=== PATIENT | female | born 1945 | race Caucasian/White ===

== ENCOUNTER → 2017-03-27 | Outpatient (CLI) | payer OTHER | LOC: FIMAGING 11:53 | PROVIDERS: ATTEND Family Medicine | DX: Z12.31 Encounter for screening mammogram for malignant neoplasm of breast (principal) | CPT/HCPCS: G0202 ==

== ENCOUNTER 2018-03-29 23:59 | Observation (INO) | payer OTHER ==
--- NOTE | 2018-03-30 00:10 | EDPHY ---
H & P Stated Complaint: Weakness Time Seen by Provider: 03/30/18 00:10 HPI/ROS: HPI CHIEF COMPLAINT: Generalized weakness, chest pressure, nausea HISTORY OF PRESENT ILLNESS: 72-year-old female, otherwise healthy denies any significant medical history does not take any daily medications presents emergency room stating that she woke up from sleep approximately an hour ago feeling that her heart was racing, some chest pressure, nausea, and global weakness. No headache, no focal weakness. No numbness or tingling. She felt her heart racing, chest pressure and this is what prompted her to come to the emergency room. Past Medical History: Denies significant medical history Past Surgical History: Orthopedic surgeries in the past. Social History: Occasional alcohol use. Denies illicit drugs or tobacco. Family History: Noncontributory ROS REVIEW OF SYSTEMS: 10 Systems were reviewed and negative with the exception of the elements mentioned in the history of present illness. Exam Constitutional nontoxic appearing no acute distress, triage nursing summary reviewed, vital signs reviewed, awake/alert. Eyes normal conjunctivae and sclera, EOMI, PERRLA. HENT normal inspection, atraumatic, moist mucus membranes, no epistax is, neck supple/ no meningismus, no raccoon eyes. Respiratory clear to auscultation bilaterally, normal breath sounds, no respiratory distress, no wheezing. Cardiovascular rate normal, regular rhythm, no murmur, no edema, distal pulses normal. Gastrointestinal soft, non-tender, no rebound, no guarding, normal bowel sounds, no distension, no pulsatile mass. Genitourinary no CVA tenderness. Musculoskeletal no midline vertebral tenderness, full range of motion, no calf swelling, no tenderness of extremities, no meningismus, good pulses, neurovascularly intact. Skin pink, warm, & dry, no rash, skin atraumatic. Neurologic awake, alert and oriented x 3, AAOx3, moves all 4 extremities equally, motor intact, sensory intact, CN II-XII intact, normal cerebellar, normal vision, normal speech. Psychiatric normal mood/affect. Heme/Lymph/Immune no lymphadenopathy. Differential diagnosis includes but is not limited to: ACS, atypical chest pain , pneumothorax, pneumonia, pulmonary embolism, aortic dissection, congestive heart failure, tumor, musculoskeletal pain, esophageal pain, GERD, peptic ulcer disease, pancreatitis Medical Decision Making: Plan for this patient IV establishment blood draw, EKG , troponin, chest x-ray rule out acute coronary syndrome, electrolytes, urine, D -dimer Re-evaluation: EKG interpretation by me on record in [facility] system. Impression time of EKG 0016, sinus rhythm 87, without any signs of acute ischemia. No ST elevation no ST depression no T-wave abnormalities. ED x-ray chest one view negative for acute cardiopulmonary disease. 0151AM: At this time patient is chest pain-free. I have asked the hospalist service Dr. Powell to admit overnight. 0156: Patient updated. Patient is chest pain free. EKG non ischemic. Negative trop. UA reviewed. Will treat. Source: Patient - Personal History Current Tetanus/Diphtheria Vaccine: Yes Current Tetanus Diphtheria and Acellular Pertussis (TDAP): Yes - Medical/Surgical History Hx Asthma: No Hx Chronic Respiratory Disease: No Hx Diabetes: No Hx Cardiac Disease: No Hx Renal Disease: No Hx Cirrhosis: No Hx Alcoholism: No Hx HIV/AIDS: No Hx Splenectomy or Spleen Trauma: No Other PMH: PMH: NOne. PSH:tonsilectomy, left elbow - Social History Smoking Status: Never smoked Constitutional: Initial Vital Signs Heart Rate 104 H 03/30/18 00:04 Respiratory Rate 18 03/30/18 00:04 Blood Pressure 157/90 H 03/30/18 00:04 O2 Sat (%) 99 03/30/18 00:04 O2 Delivery Mode Room Air Allergies/Adverse Reactions: Penicillins Allergy (Verified 03/30/18 00:04) Home Medications: Medication Instructions Recorded NK [No Known Home Meds] 04/26/15 Medical Decision Making - Data Points Laboratory Results: Laboratory Results 03/30/18 00:16 03/30/18 00:16 03/30/18 03/30/18 03/30/18 00:30 00:21 00:16 WBC RBC Hgb Hct MCV MCH MCHC RDW Plt Count MPV Neut % (Auto) Lymph % (Auto) [place] % (Auto) Eos % (Auto) Baso % (Auto) Nucleat RBC Rel Count Absolute Neuts (auto) Absolute Lymphs (auto) Absolute Monos (auto) Absolute Eos (auto) Absolute Basos (auto) Absolute Nucleated RBC Immature Gran % Immature Gran # PT INR APTT D-Dimer Sodium 142 mEq/L mEq/L (135-145) Potassium 3.7 mEq/L mEq/L (3.3-5.0) Chloride 106 mEq/L mEq/L (97-110) Carbon Dioxide 24 mEq/l mEq/l (22-31) Anion Gap 12 mEq/L mEq/L (6-14) BUN 14 mg/dL mg/dL (7-23) Creatinine 0.8 mg/dL mg/dL (0.6-1.0) Estimated GFR > 60 Glucose 150 mg/dL H mg/dL (70-100) Calcium 10.2 mg/dL mg/dL (8.5-10.4) Magnesium 2.1 mg/dL mg/dL (1.6-2.3) Total Bilirubin 1.0 mg/dL mg/dL (0.1-1.4) Conjugated Bilirubin 0.2 mg/dL mg/dL (0.0-0.5) Unconjugated Bilirubin 0.8 mg/dL mg/dL (0.0-1.1) AST 26 IU/L IU/L (14-46) ALT 25 IU/L IU/L (9-52) Alkaline Phosphatase 71 IU/L IU/L (38-126) POC Troponin I 0.01 ng/mL ng/mL (0.00-0.08) NT-Pro-B Natriuret Pep 320 pg/mL H pg/mL (0-125) Total Protein 7.4 g/dL g/dL (6.3-8.2) Albumin 4.5 g/dL g/dL (3.5-5.0) Lipase 139 IU/L IU/L (23-300) Urine Color YELLOW Urine Appearance HAZY Urine pH 5.0 (5.0-7.5) Ur Specific [place] 1.014 (1.002-1.030) Urine Protein NEGATIVE (NEGATIVE) Urine Ketones NEGATIVE (NEGATIVE) Urine Blood 2+ H (NEGATIVE) Urine Nitrate NEGATIVE (NEGATIVE) Urine Bilirubin NEGATIVE (NEGATIVE) Urine Urobilinogen NEGATIVE EU EU (0.2-1.0) Ur Leukocyte Esterase 2+ H (NEGATIVE) Urine RBC 1-3 /hpf /hpf (0-3) Urine WBC 5-10 /hpf H /hpf (0-3) Ur Epithelial Cells TRACE /lpf /lpf (NONE-1+) Urine Bacteria TRACE /hpf H /hpf (NONE SEEN) Urine Mucus TRACE /lpf /lpf (NONE-1+) Urine Glucose NEGATIVE (NEGATIVE) 03/30/18 03/30/18 00:16 00:16 WBC 6.91 10^3/uL 10^3/uL (3.80-9.50) RBC 4.77 10^6/uL 10^6/uL (4.18-5.33) Hgb 14.5 g/dL g/dL (12.6-16.3) Hct 42.6 % % (38.0-47.0) MCV 89.3 fL fL (81.5-99.8) MCH 30.4 pg pg (27.9-34.1) MCHC 34.0 g/dL g/dL (32.4-36.7) RDW 12.7 % % (11.5-15.2) Plt Count 242 10^3/uL 10^3/uL (150-400) MPV 10.9 fL fL (8.7-11.7) Neut % (Auto) 37.0 % L % (39.3-74.2) Lymph % (Auto) 52.2 % H % (15.0-45.0) [place] % (Auto) 6.4 % % (4.5-13.0) Eos % (Auto) 3.0 % % (0.6-7.6) Baso % (Auto) 1.3 % % (0.3-1.7) Nucleat RBC Rel Count 0.0 % % (0.0-0.2) Absolute Neuts (auto) 2.55 10^3/uL 10^3/uL (1.70-6.50) Absolute Lymphs (auto) 3.61 10^3/uL H 10^3/uL (1.00-3.00) Absolute Monos (auto) 0.44 10^3/uL 10^3/uL (0.30-0.80) Absolute Eos (auto) 0.21 10^3/uL 10^3/uL (0.03-0.40) Absolute Basos (auto) 0.09 10^3/uL 10^3/uL (0.02-0.10) Absolute Nucleated RBC 0.00 10^3/uL 10^3/uL (0-0.01) Immature Gran % 0.1 % % (0.0-1.1) Immature Gran # 0.01 10^3/uL 10^3/uL (0.00-0.10) PT 13.0 SEC SEC (12.0-15.0) INR 0.96 (0.83-1.16) APTT 24.7 SEC SEC (23.0-38.0) D-Dimer 0.40 ug/mLFEU ug/mLFEU (0.00-0.50) Sodium Potassium Chloride Carbon Dioxide Anion Gap BUN Creatinine Estimated GFR Glucose Calcium Magnesium Total Bilirubin Conjugated Bilirubin Unconjugated Bilirubin AST ALT Alkaline Phosphatase POC Troponin I NT-Pro-B Natriuret Pep Total Protein Albumin Lipase Urine Color Urine Appearance Urine pH Ur Specific [place] Urine Protein Urine Ketones Urine Blood Urine Nitrate Urine Bilirubin Urine Urobilinogen Ur Leukocyte Esterase Urine RBC Urine WBC Ur Epithelial Cells Urine Bacteria Urine Mucus Urine Glucose Medications Given: Discontinued Medications Sodium Chloride (Ns) 1,000 mls @ 0 mls/hr IV EDNOW ONE; Wide Open PRN Reason: Protocol Stop: 03/30/18 00:16 Last Admin: 03/30/18 00:28 Dose: 1,000 mls Ceftriaxone Sodium/Dextrose (Rocephin 1 Gm (Premix)) 50 mls @ 100 mls/hr IV EDNOW ONE PRN Reason: Protocol Stop: 03/30/18 01:25 Last Admin: 03/30/18 01:08 Dose: 50 mls Point of Care Test Results: Chemistry 03/30/18 00:21 POC Troponin I 0.01 ng/mL ng/mL (0.00-0.08) Departure - Departure Disposition: [facility] Inpatient Acute Clinical Impression: Chest pain Qualifiers: Chest pain type: unspecified Qualified Code(s): R07.9 - Chest pain, unspecified UTI (urinary tract infection) Qualifiers: Urinary tract infection type: acute cystitis Hematuria presence: with hematuria Qualified Code(s): N30.01 - Acute cystitis with hematuria Condition: Fair Referrals: Eusebia Gerardo MD [Primary Care Provider] - As per Instructions
[2018-03-30] MEDS ORDERED: NS 1,000 ML IV ONE (00:15)
[2018-03-30 00:33] LABS: INR 0.96 (0.83-1.16)
[2018-03-30 01:00] LABS: PLATELET COUNT 242 10^3/uL (150-400)
[2018-03-30] MEDS ORDERED: ONDANSETRON 4 MG/2 ML VIAL IVP PRN (02:15)
[2018-03-30] MEDS ORDERED: ACETAMINOPHEN 325 MG TAB PO PRN (02:15)
[2018-03-30] MEDS ORDERED: ONDANSETRON DISINTEGRATING 4 MG TAB PO PRN (02:15)
--- NOTE | 2018-03-30 02:37 | PDGENHP ---
History and Physical - Chief Complaint Chest pain - History of Present Illness 72 yo F w/ no PMHx presents with chest pain. The patient woke up around 11:30 PM with palpitations, chest discomfort, and diaphoresis. She decided to come to the ED immediately. The sensation resolved over the course of the next hour. In the ED her work-up has been reassuring including ECG and troponin. She has no past cardiac history but her dad had CAD and her mom AF. At the time of my evaluation she is chest pain free. She walks 10,000 steps daily and goes on a hike every Thursday. Case discussed with ED physician Dr. Ospina; records reviewed and summarized above. History Information - Allergies/Home Medication List Allergies/Adverse Reactions: Penicillins Allergy (Verified 03/30/18 00:04) Home Medications: NK [No Known Home Meds] 04/26/15 [Last Taken Unknown] I have personally reviewed and updated: family history, medical history - Past Medical History no pertinent PMH - Surgical History Additional surgical history: Tonsillectomy. L elbow screws - Family History Positive for: CAD Additional family history: Afib - Social History Smoking Status: Never smoked Review of Systems Review of Systems: ROS: 10pt was reviewed & negative except for what was stated in HPI & below Physical Exam Physical Exam: Temp Pulse Resp BP Pulse Ox 73 18 155/91 H 95 03/30/18 01:55 03/30/18 01:55 03/30/18 01:55 03/30/18 01:55 Constitutional: no apparent distress, not in pain Eyes: PERRL, EOMI Ears, Nose, Mouth, Throat: moist mucous membranes, no oral mucosal ulcers Cardiovascular: regular rate and rhythym, no murmur, rub, or gallop Respiratory: no respiratory distress, clear to auscultation Gastrointestinal: normoactive bowel sounds, soft, non-tender abdomen Skin: warm, normal color Musculoskeletal: full muscle strength, no muscle tenderness Neurologic: AAOx3, CN II-XII Intact Psychiatric: interacting appropriately, not anxious Lab Data & Imaging Review 03/30/18 00:16 03/30/18 00:16 WBC 6.91 10^3/uL (3.80-9.50) 03/30/18 00:16 RBC 4.77 10^6/uL (4.18-5.33) 03/30/18 00:16 Hgb 14.5 g/dL (12.6-16.3) 03/30/18 00:16 Hct 42.6 % (38.0-47.0) 03/30/18 00:16 MCV 89.3 fL (81.5-99.8) 03/30/18 00:16 MCH 30.4 pg (27.9-34.1) 03/30/18 00:16 MCHC 34.0 g/dL (32.4-36.7) 03/30/18 00:16 RDW 12.7 % (11.5-15.2) 03/30/18 00:16 Plt Count 242 10^3/uL (150-400) 03/30/18 00:16 MPV 10.9 fL (8.7-11.7) 03/30/18 00:16 Neut % (Auto) 37.0 % (39.3-74.2) L 03/30/18 00:16 Lymph % (Auto) 52.2 % (15.0-45.0) H 03/30/18 00:16 [place] % (Auto) 6.4 % (4.5-13.0) 03/30/18 00:16 Eos % (Auto) 3.0 % (0.6-7.6) 03/30/18 00:16 Baso % (Auto) 1.3 % (0.3-1.7) 03/30/18 00:16 Nucleat RBC Rel Count 0.0 % (0.0-0.2) 03/30/18 00:16 Absolute Neuts (auto) 2.55 10^3/uL (1.70-6.50) 03/30/18 00:16 Absolute Lymphs (auto) 3.61 10^3/uL (1.00-3.00) H 03/30/18 00:16 Absolute Monos (auto) 0.44 10^3/uL (0.30-0.80) 03/30/18 00:16 Absolute Eos (auto) 0.21 10^3/uL (0.03-0.40) 03/30/18 00:16 Absolute Basos (auto) 0.09 10^3/uL (0.02-0.10) 03/30/18 00:16 Absolute Nucleated RBC 0.00 10^3/uL (0-0.01) 03/30/18 00:16 Immature Gran % 0.1 % (0.0-1.1) 03/30/18 00:16 Immature Gran # 0.01 10^3/uL (0.00-0.10) 03/30/18 00:16 PT 13.0 SEC (12.0-15.0) 03/30/18 00:16 INR 0.96 (0.83-1.16) 03/30/18 00:16 APTT 24.7 SEC (23.0-38.0) 03/30/18 00:16 D-Dimer 0.40 ug/mLFEU (0.00-0.50) 03/30/18 00:16 Sodium 142 mEq/L (135-145) 03/30/18 00:16 Potassium 3.7 mEq/L (3.3-5.0) 03/30/18 00:16 Chloride 106 mEq/L (97-110) 03/30/18 00:16 Carbon Dioxide 24 mEq/l (22-31) 03/30/18 00:16 Anion Gap 12 mEq/L (6-14) 03/30/18 00:16 BUN 14 mg/dL (7-23) 03/30/18 00:16 Creatinine 0.8 mg/dL (0.6-1.0) 03/30/18 00:16 Estimated GFR > 60 03/30/18 00:16 Glucose 150 mg/dL (70-100) H 03/30/18 00:16 Calcium 10.2 mg/dL (8.5-10.4) 03/30/18 00:16 Magnesium 2.1 mg/dL (1.6-2.3) 03/30/18 00:16 Total Bilirubin 1.0 mg/dL (0.1-1.4) 03/30/18 00:16 Conjugated Bilirubin 0.2 mg/dL (0.0-0.5) 03/30/18 00:16 Unconjugated Bilirubin 0.8 mg/dL (0.0-1.1) 03/30/18 00:16 AST 26 IU/L (14-46) 03/30/18 00:16 ALT 25 IU/L (9-52) 03/30/18 00:16 Alkaline Phosphatase 71 IU/L (38-126) 03/30/18 00:16 POC Troponin I 0.01 ng/mL (0.00-0.08) 03/30/18 00:21 NT-Pro-B Natriuret Pep 320 pg/mL (0-125) H 03/30/18 00:16 Total Protein 7.4 g/dL (6.3-8.2) 03/30/18 00:16 Albumin 4.5 g/dL (3.5-5.0) 03/30/18 00:16 Lipase 139 IU/L (23-300) 03/30/18 00:16 Urine Color YELLOW 03/30/18 00:30 Urine Appearance HAZY 03/30/18 00:30 Urine pH 5.0 (5.0-7.5) 03/30/18 00:30 Ur Specific [place] 1.014 (1.002-1.030) 03/30/18 00:30 Urine Protein NEGATIVE (NEGATIVE) 03/30/18 00:30 Urine Ketones NEGATIVE (NEGATIVE) 03/30/18 00:30 Urine Blood 2+ (NEGATIVE) H 03/30/18 00:30 Urine Nitrate NEGATIVE (NEGATIVE) 03/30/18 00:30 Urine Bilirubin NEGATIVE (NEGATIVE) 03/30/18 00:30 Urine Urobilinogen NEGATIVE EU (0.2-1.0) 03/30/18 00:30 Ur Leukocyte Esterase 2+ (NEGATIVE) H 03/30/18 00:30 Urine RBC 1-3 /hpf (0-3) 03/30/18 00:30 Urine WBC 5-10 /hpf (0-3) H 03/30/18 00:30 Ur Epithelial Cells TRACE /lpf (NONE-1+) 03/30/18 00:30 Urine Bacteria TRACE /hpf (NONE SEEN) H 03/30/18 00:30 Urine Mucus TRACE /lpf (NONE-1+) 03/30/18 00:30 Urine Glucose NEGATIVE (NEGATIVE) 03/30/18 00:30 Visualized and Interpreted EKG results: Yes EKG Interpretation: Positive for: normal sinsus rhythm, other (Unchanged from 2015 comparison) Assessment & Plan Assessment: 72 yo F w/ minimal PMHx presents with chest pain. Plan: 1. Chest pain - Episode of chest pain, palpitations, and diaphoresis lasting for one hour. HEART score of 4 indicating need for further testing. Initial ECG (personally reviewed/interpreted) reveals no acute ischemia;troponin negative. - Observe in PCU - Monitor on telemetry, trend cardiac enzymes - Per chest pain protocol, will order standard exercise stress test - NTG PRN for chest pain 2. Asymptomatic bacteriuria - S/p CTX 1g in the ED, denies infectious symptoms. - Follow urine culture - Will observe off of further antibiotics Diet - NPO Code - Full Ppx - LMWH Dispo - Admit under observation status
[2018-03-30] MEDS ORDERED: NITROGLYCERIN 0.4 MG BTL SL PRN (02:42)
[2018-03-30 04:26] LABS: PLATELET COUNT 192 10^3/uL (150-400)
[2018-03-30] MEDS ORDERED: ENOXAPARIN 40 MG/0.4 ML SYR SC SCH (09:00)
[2018-03-30 11:30] VITALS: BP 114/68
--- NOTE | 2018-03-30 12:28 | PDDCSUM ---
Discharge Summary Discharge Summary: Date of Admission: 03/30/2018 Date of Discharge: 03/30/2018 Studies: 1. Exercise stress test Discharge Diagnoses: 1. Non-cardiac chest pain 2. Exercise-induced PVCs 3. Asymptomatic bacteriuria 4. Mildly elevated BNP with clinical euvolemia Brief Hospital Course: 72yo F with no PMH presented with episode of chest pain. She was ruled out for ACS and underwent exercise stress test which did no reveal or ischemic ECG changes and she did not have recurrence of symptoms. A d-dimer was negative. Telemetry remained quiet. Her symptoms are likely related to anxiety vs MSK. She did receive one dose of CTX in the ED but she was asymptomatic from a urinary stand point so antibiotics were not continued. Medications: Please refer to EMR for complete list. No changes made this admission. Follow Up Plan: 1. PCP clinic visit on 04/20 2. Follow up finalized urine culture Physical Exam: Vitals and telemetry reviewed, normotensive. Alert and oriented, rrr without m/r/g, lungs clear, abdomen soft, no leg edema or JVD.
--- NOTE | 2018-03-30 14:33 | ASMTLACE ---
LACE Length of stay for Answers: Less than 1 day current admission Acuity / Level of Answers: No Care: Did the patient have an inpatient admission? # of Emergency department Answers: 1-2 visits in the last 6 months Score: 1 Date Signed: 03/30/2018 02:32 PM Electronically Signed By:Odalis Bear
--- NOTE | 2018-03-30 17:11 | CPR ---
DATE OF PROCEDURE: 03/30/2018 PROCEDURE: Treadmill stress test. REASON FOR TEST: Chest discomfort. RESTING DATA: Resting EKG shows a regular sinus rhythm with occasional PVCs. She does have late R-w ave progression in the anterior leads. Resting blood pressure 120/74, resting heart rate 80. She is pain-free full at initiation of stress test. STRESS PORTION: She was exercised according to the [facility] protocol for a total of 7 minutes. She did reach her maximal predicted heart rate of 150. Maximal MET level reached 8.1, maximal blood pressur e 166/70. She did have occasional PVCs with exercise. She had no chest discomfort. No ischemic skip nges noted. RECOVERY: She did spontaneously recover. She had 1 episode of 4-beat SVT in recovery. Recovery blo od pressure 122/80, recovery heart rate 98. She had no chest pain, shortness of breath in recovery. EKG showed no ischemic changes. She had appropriate heart rate and blood pressure response with exe rcise. At this time, she currently is stable to return to her room. /[id number]/MODL
--- NOTE | 2018-03-31 07:06 | CPEKG ---
Test Reason : OPEN Blood Pressure : / mmHG Vent. Rate : 087 BPM Atrial Rate : 088 BPM P-R Int : 182 ms QRS Dur : 105 ms QT Int : 387 ms P-R-T Axes : 066 -04 028 degrees QTc Int : 466 ms Sinus rhythm Confirmed by Antonio Valle ([id number]) on 03/31/2018 7:05:18 AM Referred By: Confirmed By:Antonio Valle
== END 2018-03-30 13:06 | disposition home or self-care (01) ==
LOC: F2W 03-30 02:35
PROVIDERS: ADMIT Student in an Organized Health Care Education/Training Program; ATTEND Student in an Organized Health Care Education/Training Program
DX: R07.9 Chest pain, unspecified (principal); I49.3 Ventricular premature depolarization; R82.71 Bacteriuria; R79.89 Other specified abnormal findings of blood chemistry
CPT/HCPCS: 71045; 93005; 93017; 96361; 96365; 99285; G0378; J0696; 84484-PO; J1650

== ENCOUNTER → 2018-04-28 | Outpatient (CLI) | payer OTHER | LOC: FIMAGING 09:41 | PROVIDERS: ATTEND Family Medicine | DX: Z12.31 Encounter for screening mammogram for malignant neoplasm of breast (principal) ==